=== PATIENT | male | born 1990 | race Two or more races ===

== ENCOUNTER 2023-04-08 17:55 | Emergency (ER) | payer MEDICAID ==
[~2023-04-08] VITALS: Ht 180.3 cm; Wt 106.7 kg
[2023-04-08] MEDS ORDERED: ONDANSETRON HCL 4 MG/2 ML VIAL IV ONE (18:15)
[2023-04-08] MEDS ORDERED: KETOROLAC TROMETH 30 MG/ML 1ML VIAL IV ONE (18:15)
[2023-04-08] MEDS ORDERED: SODIUM CHLORIDE 0.9% 1,000 ML IV ONE (18:15)
[2023-04-08 18:44] VITALS: TEMP 97.6
[2023-04-08 18:45] LABS: Basophils # (auto) 0.1 10 ^3/uL (0-0.2); Basophils % (auto) 0.6 % (0.0-2.0); Eosinophils # (auto) 0 10 ^3/uL (0-0.8); Eosinophils % (auto) 0.5 % (0.0-7.0); Hematocrit 41.2 % (41.0-53.0); Hemoglobin 14.5 g/dL (13.5-17.5); Lymphocytes # (auto) 2.5 10 ^3/uL (0.4-5.4); Lymphocytes % (auto) 25.3 % (10.0-50.0); Mean Corpuscular Hemoglobin 31.7 pg (28.0-32.0); Mean Corpuscular Hgb Conc. 35.3 g/dL (32.0-36.0); Mean Corpuscular Volume 89.9 fL (80.0-100.0); Monocytes # (auto) 0.7 10 ^3/uL (0-1.3); Neutrophils # (auto) 6.5 10 ^3/uL (1.6-8.6); Neutrophils % (auto) 66.6 % (37.0-80.0); Red Blood Cells 4.58 10^6/uL (4.5-5.90); White Blood Cell 9.7 10^3/uL (4.4-10.8)
[2023-04-08 18:51] LABS: Urine Bacteria NONE SEEN /hpf (None Seen); Urine Blood Negative /uL (Negative); Urine Clarity Clear (Clear); Urine Color Colorless (Yellow); Urine Protein, UAD Negative (Negative); Urine Specific Gravity 1.009 (1.001-1.035); Urine Urobilinogen Normal (Negative); Urine WBC <1 /hpf (0 - 3); Urine pH 6.5 (5.0-8.0)
[2023-04-08] MEDS ORDERED: MORPHINE SULFATE 4 MG/ML SYR/VIAL IV ONE (19:00)
[2023-04-08 19:05] LABS: INR 1.08 (0.9-1.15); Partial Thromboplastin Time 26.8 SEC (24.5-34.5); Prothrombin Time 11.3 sec (9.3-11.8)
[2023-04-08 19:09] LABS: Alanine Aminotransferase 32 U/L (7-40); Albumin 5.2 g/dL (3.2-4.8); Alkaline Phosphatase 74 U/L (46-116); Anion Gap 12 (5-15); Aspartate Aminotransferase 26 U/L (13-40); BUN/Creatinine Ratio 9.9 (10.0-20.0); Bilirubin, Total 1.1 mg/dL (0.2-1.0); Blood Urea Nitrogen 10 mg/dL (9-23); Calcium 9.8 mg/dL (8.7-10.4); Carbon Dioxide 22 mmol/L (20-30); Chloride 105 mmol/L (98-107); Glucose 102 mg/dL (74-106); Potassium 4.2 mmol/L (3.5-5.1); Sodium 139 mmol/L (136-145); Total Protein 8.5 g/dL (5.7-8.2)
[2023-04-08 19:33] VITALS: O2SAT 99
[2023-04-08 19:35] VITALS: BP 170/83; PULSE 63; RESP 19
[2023-04-08] MEDS ORDERED: PHEN95TA10 PO (21:53)
[2023-04-08] MEDS ORDERED: CEPH500T PO (21:53)
[2023-04-08] MEDS ORDERED: IBUP-1454 PO (21:53)
== END 2023-04-08 22:29 | disposition home or self-care (01) ==
LOC: ER 17:55
DX: N20.0 Calculus of kidney (principal); Z79.1 Long term (current) use of non-steroidal anti-inflammatories (NSAID); Z79.899 Other long term (current) drug therapy
CPT/HCPCS: 36415; 74176; 80053; 81001; 83605; 83690; 85025; 85610; 85730; 87040; 96361; 96374; 96375; 99285; J1885; J2270; J2405; J7030

== ENCOUNTER 2024-04-02 19:56 | Emergency (ER) | payer MEDICAID ==
[~2024-04-02] VITALS: Ht 180.3 cm; Wt 104.2 kg
[~2024-04-02 19:56] MED LIST: CEPH500T PO; IBUP-1454 PO; PHEN95TA10 PO
[2024-04-02] MEDS ORDERED: PRED20TA2 PO (21:08)
[2024-04-02] MEDS ORDERED: COLC1CAP PO (21:08)
[2024-04-02 21:53] VITALS: BP 122/66; PULSE 82; RESP 16; TEMP 98; O2SAT 98
[2024-04-02] MEDS: KETOROLAC TROMETH 60MG/2ML VIAL IM ONE (22:02)
== END 2024-04-02 22:22 | disposition home or self-care (01) ==
LOC: ER 19:56
DX: M10.9 Gout, unspecified (principal)
CPT/HCPCS: 96372; 99283; J1885